=== PATIENT | male | born 1980 | race Caucasian/White ===

== ENCOUNTER 2018-08-09 01:07 | Emergency (ER) | payer SELFPAY ==
[~2018-08-09] VITALS: Ht 180.3 cm; Wt 120.2 kg
[2018-08-09 01:31] VITALS: Ht 180.3 cm; Wt 120.2 kg
[2018-08-09 04:07] VITALS: BP 131/78
== END 2018-08-09 03:50 | disposition home or self-care (01) ==
LOC: ED 01:07
DX: G56.02 Carpal tunnel syndrome, left upper limb (principal)
CPT/HCPCS: J1885

== ENCOUNTER 2019-01-15 10:28 | Emergency (ER) | payer SELFPAY ==
[~2019-01-15] VITALS: Ht 180.3 cm; Wt 115.0 kg
[2019-01-15 10:36] VITALS: Ht 180.3 cm; Wt 115.0 kg
[2019-01-15 13:30] VITALS: BP 123/84
== END 2019-01-15 13:30 | disposition home or self-care (01) ==
LOC: ED 10:28
DX: S80.12XA Contusion of left lower leg, initial encounter (principal); W01.0XXA Fall on same level from slipping, tripping and stumbling without subsequent striking against object, initial encounter; Y93.39 Activity, other involving climbing, rappelling and jumping off; Y92.89 Other specified places as the place of occurrence of the external cause; Y99.8 Other external cause status
CPT/HCPCS: 90715; J1885

== ENCOUNTER 2019-06-01 15:40 | Emergency (ER) | payer SELFPAY ==
[~2019-06-01] VITALS: Ht 154.9 cm; Wt 113.9 kg
[2019-06-01 15:54] VITALS: BP 136/85; Ht 154.9 cm; Wt 113.9 kg
== END 2019-06-01 18:02 | disposition left against medical advice (07) ==
LOC: ED 15:40
DX: R07.89 Other chest pain (principal)